=== PATIENT | male | born 1945 | race Caucasian/White ===

== ENCOUNTER → 2019-09-13 | Outpatient (REF) | payer MEDICARE ==
[2019-09-13 19:12] LABS: HEMATOCRIT 47.6 % (42.0-52.0); HEMOGLOBIN 15.5 g/dl (13.5-17.5); MEAN CORPUSCULAR HEMOGLOBIN 29.9 pg (27.0-33.0); MEAN CORPUSCULAR HGB CONC 32.6 g/dl (32.0-36.5); MEAN CORPUSCULAR VOLUME 91.9 fl (80.0-96.0); PLATELET COUNT, AUTOMATED 241 10^3/uL (150-450); RED BLOOD COUNT 5.18 10^6/uL (4.30-6.10); WHITE BLOOD COUNT 8.2 10^3/uL (4.0-10.0)
[2019-09-13 19:22] LABS: ALBUMIN 3.6 GM/DL (3.2-5.2); ALT/SGPT 35 U/L (12-78); BILIRUBIN,TOTAL 0.3 MG/DL (0.2-1.0); BLOOD UREA NITROGEN 10 MG/DL (7-18); CALCIUM LEVEL 9.9 MG/DL (8.8-10.2); CARBON DIOXIDE LEVEL 34 MEQ/L (21-32); CHLORIDE LEVEL 97 MEQ/L (98-107); CHOLESTEROL LEVEL 180 MG/DL (<200); CHOLESTEROL RISK RATIO 3.272 (<5); CREATININE FOR GFR 0.63 MG/DL (0.70-1.30); GLOMERULAR FILTRATION RATE > 60.0 (>42); GLUCOSE, FASTING 80 MG/DL (70-100); HDL CHOLESTEROL 55 MG/DL (>40); LDL CHOLESTEROL 101 MG/DL (<100); NON-HDL-C 125 MG/DL; POTASSIUM SERUM 3.2 MEQ/L (3.5-5.1); SODIUM LEVEL 136 MEQ/L (136-145); TOTAL PROTEIN 7.6 GM/DL (6.4-8.2); TRIGLYCERIDES LEVEL 121 MG/DL (<150)
== END ==
LOC: M SFHCADAM 15:00
PROVIDERS: ATTEND Physician Assistant
DX: I10 Essential (primary) hypertension (principal); K59.09 Other constipation; N40.0 Benign prostatic hyperplasia without lower urinary tract symptoms; E78.00 Pure hypercholesterolemia, unspecified
CPT/HCPCS: 80053; 80061; 85027; 93005; G0103; G0463

== ENCOUNTER → 2019-12-10 | Outpatient (REF) | payer MEDICARE ==
[2019-12-10 13:46] LABS: BLOOD UREA NITROGEN 11 MG/DL (7-18); CALCIUM LEVEL 9.1 MG/DL (8.8-10.2); CARBON DIOXIDE LEVEL 31 MEQ/L (21-32); CHLORIDE LEVEL 100 MEQ/L (98-107); CREATININE FOR GFR 0.72 MG/DL (0.70-1.30); GLOMERULAR FILTRATION RATE > 60.0 (>42); GLUCOSE, FASTING 92 MG/DL (70-100); MAGNESIUM LEVEL 2.3 MG/DL (1.8-2.4); POTASSIUM SERUM 3.7 MEQ/L (3.5-5.1); SODIUM LEVEL 134 MEQ/L (136-145)
== END ==
LOC: M SFHCADAM 10:12
PROVIDERS: ATTEND Physician Assistant
DX: E87.6 Hypokalemia (principal)

== ENCOUNTER → 2020-01-21 | Outpatient (REF) | payer MEDICARE ==
[2020-03-16 03:48] LABS: BLOOD UREA NITROGEN 13 MG/DL (7-18); CALCIUM LEVEL 8.8 MG/DL (8.8-10.2); CARBON DIOXIDE LEVEL 28 MEQ/L (21-32); CHLORIDE LEVEL 97 MEQ/L (98-107); CREATININE FOR GFR 0.74 MG/DL (0.70-1.30); GLOMERULAR FILTRATION RATE > 60.0 (>42); GLUCOSE, FASTING 97 MG/DL (70-100); POTASSIUM SERUM 4.4 MEQ/L (3.5-5.1); SODIUM LEVEL 130 MEQ/L (136-145)
== END ==
LOC: M SFHCADAM 09:49
PROVIDERS: ATTEND Physician Assistant
DX: I11.9 Hypertensive heart disease without heart failure (principal)

== ENCOUNTER → 2020-04-29 | Outpatient (CLI) | payer MEDICARE ==
--- NOTE | 2020-05-01 13:45 | ECHO ---
DATE OF PROCEDURE: 04/29/2020 Age: 74 Gender: Male Height: 152 cm Weight: 82 kg REFERRING PHYSICIAN: MIMA Dennis. INDICATION: Abnormal EKG. , MEASUREMENTS: IVS 1.0 cm LV 4.4 cm LVPW 1.0 cm LA 3.8 cm Aorta 3.1 cm IVC 1.4 cm Mitral E wave velocity 78, A wave 99 E prime septal 6.1, E prime lateral 11.2 FINDINGS: This study is of acceptable technical quality. The patient is in sinus rhythm. Normal LV size with preserved LV systolic function, estimated LVEF 60% to 65%. Normal RV size and systolic function. Both atria appear normal. The aortic valve is mildly sclerotic, but is tricuspid and has normal mobility. Mitral and tricuspid valves appear normal. Limited views of pulmonic valve also appear normal. No pericardial effusion is noted. Inferior vena cava is normal size and appropriately collapses with inspiration, indicative of normal central venous pressure. The aortic root is normal. The aortic arch and abdominal aorta were not visualized. Doppler interrogation reveals competent aortic valve. There are also competent mitral and pulmonic valves. Tricuspid valve exhibits trace insufficiency, but unfortunately the quality of the TR jet was not sufficient to adequately estimate the pulmonary artery pressure. CONCLUSIONS: 1. Study is of acceptable technical quality, underlying sinus rhythm. 2. Normal left ventricular (LV) size and systolic function, grade 1 diastolic dysfunction. 3. No significant valvular disease. 4. Normal central venous pressure, but unable to estimate pulmonary artery pressure. COMMENTS: Essentially normal echocardiogram for patients age. MTDD
== END ==
LOC: M CARPUL 09:20
PROVIDERS: ATTEND Physician Assistant
DX: R94.31 Abnormal electrocardiogram [ECG] [EKG] (principal)

== ENCOUNTER → 2020-10-13 | Outpatient (REF) | payer MEDICARE ==
[2020-10-13 16:48] LABS: HEMATOCRIT 40.5 % (42.0-52.0); HEMOGLOBIN 13.5 g/dl (13.5-17.5); MEAN CORPUSCULAR HEMOGLOBIN 30.8 pg (27.0-33.0); MEAN CORPUSCULAR HGB CONC 33.3 g/dl (32.0-36.5); MEAN CORPUSCULAR VOLUME 92.3 fl (80.0-96.0); PLATELET COUNT, AUTOMATED 238 10^3/uL (150-450); RED BLOOD COUNT 4.39 10^6/uL (4.30-6.10); WHITE BLOOD COUNT 7.7 10^3/uL (4.0-10.0)
[2020-10-13 17:26] LABS: ALBUMIN 3.2 GM/DL (3.2-5.2); ALT/SGPT 35 U/L (12-78); BILIRUBIN,TOTAL 0.4 MG/DL (0.2-1.0); BLOOD UREA NITROGEN 17 MG/DL (7-18); CARBON DIOXIDE LEVEL 29 MEQ/L (21-32); CHLORIDE LEVEL 93 MEQ/L (98-107); CHOLESTEROL LEVEL 144 MG/DL (<200); CHOLESTEROL RISK RATIO 2.716 (<5); CREATININE FOR GFR 0.62 MG/DL (0.70-1.30); FREE T4 1.02 NG/DL (0.76-1.46); GLOMERULAR FILTRATION RATE > 60.0 (>42); GLUCOSE, FASTING 90 MG/DL (70-100); HDL CHOLESTEROL 53 MG/DL (>40); LDL CHOLESTEROL 57 MG/DL (<100); NON-HDL-C 91 MG/DL; POTASSIUM SERUM 4.4 MEQ/L (3.5-5.1); SODIUM LEVEL 128 MEQ/L (136-145); TOTAL PROTEIN 6.9 GM/DL (6.4-8.2); TRIGLYCERIDES LEVEL 169 MG/DL (<150)
[2020-10-13 17:28] LABS: TOTAL 25(OH) VITAMIN D 30.1 NG/ML (30.0-100.0)
[2020-10-13 17:29] LABS: FOLATE > 24.0 NG/ML; VITAMIN B12 LEVEL 881 PG/ML
[2020-10-13 17:36] LABS: CREATININE, URINE 33.4 MG/DL; MALB URINE SIEMENS < 5.0 MG/L; MAU/CREAT RATIO 14.9 MCG/MG (0.0-30.0)
== END ==
LOC: M SFHCADAM 14:58
PROVIDERS: ATTEND Physician Assistant
DX: I10 Essential (primary) hypertension (principal); E78.00 Pure hypercholesterolemia, unspecified; N40.0 Benign prostatic hyperplasia without lower urinary tract symptoms; G62.9 Polyneuropathy, unspecified
CPT/HCPCS: 80053; 80061; 82043; 82306; 82607; 82746; 84439; 84443; 85027; G0103

== ENCOUNTER → 2020-10-26 | Outpatient (CLI) | payer MEDICARE ==
--- NOTE | 2020-10-26 09:29 | REP ---
INDICATION: PAIN IN LEFT HIP COMPARISON: None. TECHNIQUE: AP and frog-lateral views of the S left hip FINDINGS: Degenerative changes include increased sclerosis to the acetabular rim with joint space narrowing and marginal spurring. No further overt arthritic changes are appreciated. No evidence for acute or healed injury. IMPRESSION: Mild osteoarthritic degenerative changes. <Electronically signed by Abimael Mast > 10/26/20 0982
--- NOTE | 2020-10-26 09:34 | REP ---
INDICATION: PAIN IN LEFT KNEE COMPARISON: None. TECHNIQUE: AP, lateral, bilateral oblique and sunrise views. FINDINGS: Moderate tricompartmental osteoarthritic degenerative changes along with generalized age-related osteopenia. There is increased subtle cortical irregularities involving the femoral condyles along with minimal medial tibiofemoral joint space narrowing. [place] view demonstrates sclerotic changes along the patellar contour with marginal osteophyte formation and decreased patellofemoral joint space. No acute fracture or dislocation. No effusion. IMPRESSION: Osteopenia and moderate tricompartmental osteoarthritic degenerative changes primarily involving the patellofemoral joint. <Electronically signed by Abimael Mast > 10/26/20 0931
== END ==
LOC: M ADAMS 09:00
PROVIDERS: ATTEND Physician Assistant
DX: M17.12 Unilateral primary osteoarthritis, left knee (principal); M85.88 Other specified disorders of bone density and structure, other site; M16.12 Unilateral primary osteoarthritis, left hip; M25.559 Pain in unspecified hip; M25.562 Pain in left knee

== ENCOUNTER → 2021-01-08 | Outpatient (CLI) | payer MEDICARE ==
[2021-01-08 14:31] LABS: BLOOD UREA NITROGEN 22 MG/DL (7-18); CALCIUM LEVEL 8.6 MG/DL (8.8-10.2); CARBON DIOXIDE LEVEL 27 MEQ/L (21-32); CHLORIDE LEVEL 101 MEQ/L (98-107); GLOMERULAR FILTRATION RATE > 60.0 (>42); GLUCOSE, FASTING 101 MG/DL (70-100); POTASSIUM SERUM 4.4 MEQ/L (3.5-5.1); SODIUM LEVEL 134 MEQ/L (136-145)
== END ==
LOC: M PLALAB 11:58
PROVIDERS: ATTEND Physician Assistant
DX: M25.559 Pain in unspecified hip (principal)

== ENCOUNTER 2021-02-07 19:33 | Emergency (ER) | payer MEDICARE, OTHER ==
[~2021-02-07] VITALS: Ht 157.5 cm; Wt 82.3 kg
--- NOTE | 2021-02-07 20:42 | REPVR ---
PROCEDURE INFORMATION: Exam: XR Chest Exam date and time: 02/07/2021 8:26 PM Age: 75 years old Clinical indication: Pain; Other: Shoulder; Additional info: Trauma TECHNIQUE: Imaging protocol: XR of the chest. Views: 1 view. COMPARISON: No relevant prior studies available. FINDINGS: Lungs: Unremarkable. No consolidation. Pleural spaces: Unremarkable. No pleural effusion. No pneumothorax. Heart/Mediastinum: Unremarkable. No cardiomegaly. Bones/joints: Acute comminuted fracture the proximal humerus on the right. Osteoporosis. IMPRESSION: 1. Acute comminuted fracture the proximal humerus on the right. 2. No acute pulmonary parenchymal findings. Electronically signed by: Kelechi Gamboa On 02/07/2021 20:42:03 PM
--- NOTE | 2021-02-07 20:43 | REPVR ---
PROCEDURE INFORMATION: Exam: XR Right Shoulder Exam date and time: 02/07/2021 8:26 PM Age: 75 years old Clinical indication: Pain; Shoulder; Right; Additional info: Trauma TECHNIQUE: Imaging protocol: XR Right shoulder. Views: 2 or more views. COMPARISON: CR Chest, 1 view 02/07/2021 8:10 PM FINDINGS: Bones/joints: Acute fracture proximal humerus involving the greater tuberosity. Anterior dislocation of the humeral head relative to the glenoid fossa. Soft tissues: Normal. IMPRESSION: Acute fracture proximal humerus involving the greater tuberosity. Anterior dislocation of the humeral head relative to the glenoid fossa. Electronically signed by: Kelechi Gamboa On 02/07/2021 20:43:03 PM
--- NOTE | 2021-02-07 20:44 | REPVR ---
PROCEDURE INFORMATION: Exam: XR Right Humerus Exam date and time: 02/07/2021 8:26 PM Age: 75 years old Clinical indication: Pain; Shoulder; Right; Additional info: Trauma TECHNIQUE: Imaging protocol: XR Right humerus. Views: 2 or more views. COMPARISON: CR Shoulder, complete RIGHT 02/07/2021 8:12 PM FINDINGS: Bones/joints: Acute fracture of the greater tuberosity in the proximal humerus. Anterior dislocation of the humeral head. Remaining humerus unremarkable. Soft tissues: Normal. IMPRESSION: Acute fracture of the greater tuberosity in the proximal humerus. Anterior dislocation of the humeral head. Remaining humerus unremarkable. Electronically signed by: Kelechi Gamboa On 02/07/2021 20:43:55 PM
[2021-02-07] MEDS ORDERED: MORPHINE 2 MG/ML 1ML VIAL (J2270) IV ONE (21:05)
[2021-02-07] MEDS ORDERED: NS 1,000 ML IV SCH (22:10)
[2021-02-07] MEDS: propofoL 200 MG/20 ML VIAL IV.PROC PRN ×4 (22:57→23:05)
--- NOTE | 2021-02-08 00:02 | REPVR ---
PROCEDURE INFORMATION: Exam: XR Right Shoulder Exam date and time: 02/07/2021 11:42 PM Age: 75 years old Clinical indication: Pain; Shoulder; Right; Additional info: Reduction film TECHNIQUE: Imaging protocol: XR Right shoulder. Views: 2 or more views. COMPARISON: CR Shoulder, complete RIGHT 02/07/2021 8:12 PM FINDINGS: Bones/joints: There is an acute mildly displaced fracture of the greater tuberosity of the right humerus/Hill-Sachs fracture in improved alignment compared to the prior right shoulder x-rays on 02/07/2021 8:12 PM. The right bony glenoid is intact. The right glenohumeral alignment is anatomic and the previously noted right anterior shoulder dislocation has been reduced successfully since the prior right shoulder x-rays on 02/07/2021 8:12 PM. Soft tissues: There is a calcific density in the right rotator cuff tendon insertion, which is compatible with calcific tendinitis. IMPRESSION: 1. Acute mildly displaced fracture of the greater tuberosity of the right humerus/Hill-Sachs fracture in improved alignment compared to the prior right shoulder x-rays on 02/07/2021 8:12 PM. 2. The previously noted right anterior shoulder dislocation has been reduced successfully since the prior right shoulder x-rays on 02/07/2021 8:12 PM. 3. Right rotator cuff calcific tendinitis. Electronically signed by: Alvarez Quiles On 02/08/2021 00:01:46 AM
[2021-02-08] MEDS ORDERED: OXYCODONE/APAP 5MG/325MG(BULK FOR ED) 1 TABLET PO ONE (01:10)
[2021-02-08] MEDS ORDERED: HYDR-3713 PO (01:11)
[2021-02-08 01:43] VITALS: BP 152/83
== END 2021-02-08 01:45 | disposition home or self-care (01) ==
LOC: M ED 19:33
DX: S43.004A Unspecified dislocation of right shoulder joint, initial encounter (principal); S42.251A Displaced fracture of greater tuberosity of right humerus, initial encounter for closed fracture; W18.2XXA Fall in (into) shower or empty bathtub, initial encounter; Y92.012 Bathroom of single-family (private) house as the place of occurrence of the external cause; I10 Essential (primary) hypertension
CPT/HCPCS: 23650; 71045; 73030; 73060; 93041; 96361; 96374; 99152; 99153; 99285; J2270

== ENCOUNTER → 2021-02-22 | Outpatient (CLI) | payer MEDICARE, MEDICAID ==
[~2021-02-22] MED LIST: HYDR-3713 PO
--- NOTE | 2021-02-22 09:04 | REP ---
INDICATION: RT SHOULDER PAIN ? POSITION OF FX. COMPARISON: Radiographs 02/07/2021. TECHNIQUE: Axial CT right shoulder with sagittal and coronal reconstruction images. FINDINGS: There is a comminuted fracture of the proximal humerus. The major fracture fragment originates from the greater tuberosity and is displaced medially, located along the posterior aspect of the humeral head. Multiple subcentimeter fracture fragments are seen along the superior margin of the humeral head, and a few are seen in the more lateral soft tissues. The humeral head is somewhat high riding within the glenoid fossa raising the possibility of a rotator cuff tear. There are mild degenerative changes at the acromioclavicular joint. IMPRESSION: Comminuted fracture proximal humerus, the major fracture fragment originates from the greater tuberosity and is located along the posterior aspect of the humeral head. There are multiple subcentimeter fracture fragments along the superior margin of the humeral head. A few are also seen in the more lateral soft tissues. High riding humeral head suggests a possible rotator cuff tear. <Electronically signed by Avtar Palmer > 02/22/21 0900
== END ==
LOC: M RAD 08:03
PROVIDERS: ATTEND Orthopaedic Surgery Sports Medicine
DX: S42.251D Displaced fracture of greater tuberosity of right humerus, subsequent encounter for fracture with routine healing (principal); X58.XXXD Exposure to other specified factors, subsequent encounter; Y92.89 Other specified places as the place of occurrence of the external cause

== ENCOUNTER → 2021-02-24 | Outpatient (REF) | payer MEDICARE, MEDICAID ==
[~2021-02-24] MED LIST changes: +AMLO1TAB24 PO; +AZEL0.05; +CALC500T31 PO; +FINA5TAB2 PO; +GABA-1171 PO; +HYDR-3490 PO; +LEVOTAB10 PO; +METO1TAB7 PO; +MOME50SP2 INH; +OLME40TA PO; +POTA-136 PO; +SIMV20TA22 PO; +SPIR-10 PO; +TAMS1CAP17 PO
[2021-02-24 18:18] LABS: BASO % 0.2 % (0.0-1.0); EOS # 0.1 10^3/uL (0.0-0.5); EOS % 0.4 % (0.0-3.0); HEMATOCRIT 39.5 % (42.0-52.0); HEMOGLOBIN 13.3 g/dl (13.5-17.5); LYMPH # 1.7 10^3/uL (1.5-5.0); LYMPH % 12.4 % (24.0-44.0); MEAN CORPUSCULAR HEMOGLOBIN 30.7 pg (27.0-33.0); MEAN CORPUSCULAR HGB CONC 33.7 g/dl (32.0-36.5); MEAN CORPUSCULAR VOLUME 91.2 fl (80.0-96.0); MONO # 1.3 10^3/uL (0.0-0.8); MONO % 9.4 % (2.0-8.0); NEUTROPHILS # 10.2 10^3/uL (1.5-8.5); NEUTROPHILS % 76.8 % (36.0-66.0); PLATELET COUNT, AUTOMATED 346 10^3/uL (150-450); RED BLOOD COUNT 4.33 10^6/uL (4.30-6.10); WHITE BLOOD COUNT 13.3 10^3/uL (4.0-10.0)
[2021-02-24 18:38] LABS: ALT/SGPT 68 U/L (12-78); BILIRUBIN,TOTAL 0.6 MG/DL (0.2-1.0); BLOOD UREA NITROGEN 23 MG/DL (7-18); CALCIUM LEVEL 8.9 MG/DL (8.8-10.2); CARBON DIOXIDE LEVEL 28 MEQ/L (21-32); CHLORIDE LEVEL 92 MEQ/L (98-107); CREATININE FOR GFR 0.76 MG/DL (0.70-1.30); GLOMERULAR FILTRATION RATE > 60.0 (>42); GLUCOSE, FASTING 99 MG/DL (70-100); POTASSIUM SERUM 4.7 MEQ/L (3.5-5.1); SODIUM LEVEL 127 MEQ/L (136-145); TOTAL PROTEIN 6.2 GM/DL (6.4-8.2)
== END ==
LOC: M SFHCADAM 12:35
PROVIDERS: ATTEND Family Medicine
DX: Z01.818 Encounter for other preprocedural examination (principal)
CPT/HCPCS: 80053; 85025; G0463

== ENCOUNTER → 2021-02-27 | Outpatient (CLI) | payer MEDICARE | LOC: M LABSMTC 09:07 | PROVIDERS: ATTEND Anesthesiology | DX: Z01.812 Encounter for preprocedural laboratory examination (principal) ==

== ENCOUNTER 2021-03-04 06:00 | Day surgery (SDC) | payer MEDICARE ==
[~2021-03-04] VITALS: Ht 152.4 cm; Wt 82.6 kg
[~2021-03-04 06:00] MED LIST changes: +ceFAZolin SOD 2 GM in IV 1 EA IV ONE
[2021-03-04] MEDS ORDERED: fentaNYL 100 MCG/2 ML INJECTION (J3010) IV PRN ×2 (07:01→10:55)
[2021-03-04] MEDS ORDERED: MIDAZOLAM INJ 2MG/2ML VIAL (J2250 PER 1MG) IV PRN (07:01)
[2021-03-04] MEDS ORDERED: BUPIVACAINE LIPOSOME/PF 1.3% 20ML VIAL (13.3MG/ML)(EXPAREL)(C9290 PER1MG) As Ordered ONE (07:08)
[2021-03-04] MEDS ORDERED: BUPIVACAINE HCL 0.25% 30ML VIAL As Ordered ONE (07:08)
[2021-03-04] MEDS ORDERED: ONDANSETRON 4MG/2ML VIAL As Ordered ONE (07:20)
[2021-03-04] MEDS ORDERED: ACETAMINOPHEN 1000MG 100ML IV BTL (OFIRMEV) (J0131 PER 10MG) As Ordered ONE ×2 (07:20→10:07)
[2021-03-04] MEDS ORDERED: METOCLOPRAMIDE INJ 10MG/2ML VIAL (J2765 PER 1) As Ordered ONE (07:20)
[2021-03-04] MEDS ORDERED: propofoL 200 MG/20 ML VIAL As Ordered ONE (07:20)
[2021-03-04] MEDS ORDERED: ROCURONIUM BROMIDE 50 MG/5 ML VIAL As Ordered ONE (07:20)
[2021-03-04] MEDS ORDERED: LIDOCAINE 2% 100MG/5ML SDV (FOR ANES.) As Ordered ONE (07:20)
[2021-03-04] MEDS ORDERED: EPINEPHrine INJ 1 MG/ML 1ML AMP XX ONE (07:30)
[2021-03-04] MEDS ORDERED: dexameTHASONE 10MG/1ML VIAL PRES.FREE (J1100 PER 1MG) XX ONE (07:30)
[2021-03-04] MEDS ORDERED: LR 1,000 ML IV ONE (07:35)
[2021-03-04] MEDS ORDERED: ROPIvacaine 0.5% 30ML INJECTION (J2795 PER 1MG) XX ONE (07:40)
[2021-03-04] MEDS ORDERED: TRANEXAMIC ACID 100 MG/ML 10ML VIAL As Ordered ONE (08:52)
[2021-03-04] MEDS ORDERED: PHENYLephrine 500MCG 5ML (100MCG/ML) SYRINGE As Ordered ONE (10:06)
[2021-03-04] MEDS ORDERED: SUGAMMADEX SODIUM 500 MG/5 ML VIAL (BRIDION) As Ordered ONE (10:06)
[2021-03-04] MEDS ORDERED: dexameTHASONE 4 MG/ML 1ML VIAL (J1100 PER 1MG) As Ordered ONE (10:06)
[2021-03-04] MEDS ORDERED: ePHEDrine SULFATE 25 MG/5 ML(5MG/ML) SYRINGE As Ordered ONE (10:06)
--- NOTE | 2021-03-04 10:27 | REP ---
INDICATION: RIGHT SHOULDER FRACTURE. COMPARISON: Comparison right shoulder radiographs February 07, 2021. TECHNIQUE: Five views. 104.4 seconds of fluoroscopy time is reported. FINDINGS: A sequence of 5 last image hold fluoroscopically obtained spot radiographs of the right shoulder document open reduction internal fixation for greater tuberosity fracture. IMPRESSION: Procedural imaging. <Electronically signed by Alexis Hollis > 03/04/21 0851
--- NOTE | 2021-03-04 10:41 | ROOPDOC ---
[facility] Report Of Operation Report of Operation DATE OF PROCEDURE: 03/04/21 PREPROCEDURE DIAGNOSES: Right shoulder greater tuberosity fracture. POSTPROCEDURE DIAGNOSES: Same. PROCEDURE PERFORMED: Right greater tuberosity open reduction internal fixation. SURGEON: Dr. Nima Wolfe MD FRUIT INSPECTOR: ANESTHESIA: General anesthesia preoperative block Dr. Monte. ESTIMATED BLOOD LOSS: Approximately 100 mL. COMPLICATIONS: None. REMARKS: None. FINDINGS: Displaced greater tuberosity fracture SPECIMENS REMOVED: Small bone fragment PROCEDURE NOTE: This 75-year-old man had a fall. He sustained a widely displaced greater tuberosity fracture. We discussed the pros and cons risks and benefits with a case making machine operator before proceeding with surgery. He had no further questions today case making machine operator present on the computer, marked the right upper extremity. He wished to proceed.. DESCRIPTION OF PROCEDURE: Patient was brought to the operating room theater player. He was placed supine on the operating room table. Arm board was used radiolucent. 2 g IV Ancef as well as 1 g of IV tranexamic acid was used prior to the start of the procedure. General anesthesia induced. Patient sat up at a 45 degree angle. Right upper extremity prepped and draped in the usual sterile fashion with chlorhexidine-based prep solution allowing over 3 minutes drying time prior to draping. Bed turned at 90 degrees. Large fluoroscopy brought in from the head of the bed. Preoperative timeout performed to confirm the site the patient and the surgery. Began by marking out the proposed incision. I could palpate the greater tube rosity fragment far posterior laterally. I used the posterior one third anterior two thirds junction with a straight deltoid split laterally based incision. I carried this dissection down through skin and subcutaneous tissue. I marked out the axillary nerve 5 centimeters below the level of the lateral acromion. Split the deltoid fascia in line with skin incision. I ensured my incision was not any further distal to this palpated below to feel the axillary nerve in continuity. Identified the greater tuberosity fracture bed. I cleared this thoroughly irrigated it removed any interposed hematoma and periosteum off the fracture bed as well as the greater tuberosity fragment. The GT fragment was far posterior laterally. I used grasping devices as well as the #2 FiberWire sutures in the rotator cuff and joystick wires to deliver the fragment back to its anatomic location. I took intraoperative fluoroscopy. I used small K wires to preliminarily reduce the fracture fragment. I ensured not over reduce this as is typical for these types of fractures and had to reposition the fragment numerous times to avoid over reduction. There was a small spike of bone laterally however the reduction at the proximal aspect of the fracture fragment appeared normal. I did have to remove 1 small aspect 5mm piece of bone with a very small attachment of the rotator cuff to this in order to properly re duce the fragment as this was blocking reduction and comminuted. I achieved good reduction pased 4 K wires into the fragment took intraoperative radiographs to confirm the proper placement. I then used a 4.0 mm Synthes partially threaded cannulated screws, overdrilled the near cortex with the cannulated 2.7mm drill. I inserted 2, 38 mm long screws with washers and ensured that these did not penetrate the far cortex both by feeling when passing the guidewires as well as intraoperative AP and lateral fluoroscopy. I did the near far technique ensure no penetration. I used direct visualization as well as live fluoroscopy to ensure no movement at the fracture site and good compression. The sutures in the rotator cuff were then removed, no obvious cuff tear. Wound thoroughly irrigated final pictures taken and saved onto the system. Deltoid fascia closed with interrupted #1 Vicryl suture subcutaneous tissue with 2-0 Vicryl sutures and skin with Prineo and Dermabond dressing which was allowed to fully dry prior to removing the drapes. Patient's right upper extremity was then placed into a sling with the arm on the abdomen. Patient was woken up from general anesthetic transferred off the operating room table and taken to postanesthetic care unit in stable condition. All sponge needle instrument counts were correct no complications estimated blood loss 100 cc. Plan for patient gentle pendulum exercises sling for 2 weeks and wrist and elbow exercises 4 times a day May shower over top of the dressing postoperative day [address] it in place until follow-up. Prescription has been sent in electronically to the pharmacy listed in the EMR. Risk factors for harms from taking opioid medications discussed and assessed including but not limited to personal or family history of substance use disorder, anxiety or depression, , age 65 or older, COPD or other underlying respiratory conditions, and renal or hepatic insufficiency. Discussed with patient concerns and determined any harms they may experience or be currently experiencing such as nausea or constipation, feeling sedated or confused, breathing interruptions during sleep, or taking or craving more opioids than prescribed or difficulty controlling use (addiction). Discussed early warning signs of overdose including confusion, sedation, slurred speech, abnormal gait. Postoperative wound instructions were given. It was recommended to keep the wound clean and dry. It was reinforced with the patient that they should call us or be seen immediately for redness, drainage, or fever. NIMA WOLFE MD Mar 04, 2021 10:41
[2021-03-04] MEDS ORDERED: LR 1,000 ML IV SCH ×2 (10:55)
[2021-03-04] MEDS ORDERED: ACETAMINOPHEN TAB 650MG DOSE (2X325MG) PO PRN (10:55)
[2021-03-04] MEDS ORDERED: ONDANSETRON 4MG/2ML VIAL IV PRN ×2 (10:55)
[2021-03-04] MEDS ORDERED: PERCOCET 5MG/325MG TAB PO PRN (10:55)
[2021-03-04] MEDS ORDERED: MORPHINE 2 MG/ML 1ML VIAL (J2270) IV PRN (10:55)
[2021-03-04] MEDS ORDERED: oxyCODONE 5MG TAB PO PRN (10:55)
[2021-03-04 12:15] VITALS: BP 97/63
== END 2021-03-04 12:40 | disposition home or self-care (01) ==
LOC: M SDC 06:00
PROVIDERS: ATTEND Orthopaedic Surgery Sports Medicine
DX: S42.251A Displaced fracture of greater tuberosity of right humerus, initial encounter for closed fracture (principal); W01.0XXA Fall on same level from slipping, tripping and stumbling without subsequent striking against object, initial encounter; Y92.89 Other specified places as the place of occurrence of the external cause; K59.09 Other constipation; I10 Essential (primary) hypertension; N40.0 Benign prostatic hyperplasia without lower urinary tract symptoms; M17.12 Unilateral primary osteoarthritis, left knee; J30.9 Allergic rhinitis, unspecified; I87.2 Venous insufficiency (chronic) (peripheral); E78.5 Hyperlipidemia, unspecified; E87.1 Hypo-osmolality and hyponatremia; Z79.899 Other long term (current) drug therapy
CPT/HCPCS: 23630; 76000; C1713; C9290; J0131; J0171; J0690; J1100; J2250; J2370; J2405; J2765; J2795; J3010

== ENCOUNTER → 2021-03-18 | Outpatient (CLI) | payer MEDICARE ==
[~2021-03-18] MED LIST changes: -ceFAZolin SOD 2 GM in IV 1 EA IV ONE
--- NOTE | 2021-03-18 09:39 | REP ---
INDICATION: SURGICAL AFTERCARE. COMPARISON: 02/07/2021 TECHNIQUE: Five views FINDINGS: The previously described proximal right humeral fracture has been openly reduced and internally fixed with 2 cancellous screws. The alignment is near anatomical. The tips of the screws do not breach the glenohumeral joint. Multiple calcifications are seen in the subacromial space representing a change from the prior exam. IMPRESSION: As above. <Electronically signed by Juan Antonio Richmond > 03/18/21 1529
== END ==
LOC: M SOG 08:19
PROVIDERS: ATTEND Orthopaedic Surgery Sports Medicine
DX: Z48.89 Encounter for other specified surgical aftercare (principal)

== ENCOUNTER → 2021-04-15 | Outpatient (REF) | payer MEDICARE, MEDICAID ==
[2021-04-15 14:28] LABS: BLOOD UREA NITROGEN 15 MG/DL (7-18); CALCIUM LEVEL 9.4 MG/DL (8.8-10.2); CARBON DIOXIDE LEVEL 29 MEQ/L (21-32); CHLORIDE LEVEL 100 MEQ/L (98-107); CREATININE FOR GFR 0.66 MG/DL (0.70-1.30); GLOMERULAR FILTRATION RATE > 60.0 (>42); GLUCOSE, FASTING 103 MG/DL (70-100); POTASSIUM SERUM 4.8 MEQ/L (3.5-5.1); SODIUM LEVEL 134 MEQ/L (136-145)
== END ==
LOC: M SFHCADAM 09:35
PROVIDERS: ATTEND Physician Assistant
DX: E87.1 Hypo-osmolality and hyponatremia (principal)

== ENCOUNTER → 2021-04-27 | Outpatient (CLI) | payer MEDICARE, MEDICAID ==
--- NOTE | 2021-04-27 09:03 | REP ---
INDICATION: ORTHOPEDIC AFTERCARE. COMPARISON: 03/18/2021 TECHNIQUE: Neutral, internal rotation, external rotation, axillary and Y-views of the right shoulder FINDINGS: Patient is status post humeral head/tuberosity fracture fixation. Orthopedic screws and fracture fragment are unchanged in appearance and position. Suspected fracture components in the subacromial joint space and just lateral to the humeral neck are again identified and unchanged. IMPRESSION: No change from prior examination. <Electronically signed by Abimael Mast > 04/27/21 0878
== END ==
LOC: M SOG 08:11
PROVIDERS: ATTEND Orthopaedic Surgery Sports Medicine
DX: Z47.89 Encounter for other orthopedic aftercare (principal); Z98.890 Other specified postprocedural states

== ENCOUNTER → 2021-05-04 | Outpatient (RCR) | payer MEDICARE | LOC: M PT 04-05 08:35 | PROVIDERS: ATTEND Orthopaedic Surgery Sports Medicine | DX: Z48.89 Encounter for other specified surgical aftercare (principal) ==

== ENCOUNTER 2021-06-01 06:53 | Outpatient (RCR) | payer MEDICARE | END 2021-06-04 | LOC: M PT 06:53 | PROVIDERS: ATTEND Orthopaedic Surgery Sports Medicine | DX: S42.251D Displaced fracture of greater tuberosity of right humerus, subsequent encounter for fracture with routine healing (principal) ==

== ENCOUNTER 2021-06-17 07:00 | Outpatient (RCR) | payer MEDICARE | END 2021-07-05 | LOC: M PT 07:00 | PROVIDERS: ATTEND Orthopaedic Surgery Sports Medicine | DX: Z48.89 Encounter for other specified surgical aftercare (principal); S42.251D Displaced fracture of greater tuberosity of right humerus, subsequent encounter for fracture with routine healing ==

== ENCOUNTER → 2021-06-24 | Outpatient (CLI) | payer MEDICARE | LOC: M SOG 08:25 | PROVIDERS: ATTEND Orthopaedic Surgery Sports Medicine | DX: S42.251D Displaced fracture of greater tuberosity of right humerus, subsequent encounter for fracture with routine healing (principal); X58.XXXD Exposure to other specified factors, subsequent encounter; Y92.89 Other specified places as the place of occurrence of the external cause ==

== ENCOUNTER → 2021-09-24 | Outpatient (REF) | payer MEDICARE, MEDICAID | LOC: M SFHCADAM 15:50 | PROVIDERS: ATTEND Physician Assistant | DX: Z53.9 Procedure and treatment not carried out, unspecified reason (principal) ==

== ENCOUNTER → 2021-09-28 | Outpatient (CLI) | payer MEDICARE, MEDICAID | LOC: M SOG 15:40 | PROVIDERS: ATTEND Orthopaedic Surgery Hand Surgery | DX: S42.251K Displaced fracture of greater tuberosity of right humerus, subsequent encounter for fracture with nonunion (principal) ==

== ENCOUNTER 2021-10-05 10:53 | Emergency (ER) | payer MEDICARE, MEDICAID ==
[~2021-10-05] VITALS: Ht 157.5 cm; Wt 83.4 kg
[~2021-10-05 10:53] MED LIST changes: -ONDA4TAB6 PO
[2021-10-05 12:52] LABS: BASO # 0.1 10^3/uL (0.0-0.2); BASO % 0.6 % (0.0-1.0); EOS # 0.4 10^3/uL (0.0-0.5); EOS % 4.1 % (0.0-3.0); HEMATOCRIT 38.5 % (42.0-52.0); HEMOGLOBIN 13.3 g/dl (13.5-17.5); LYMPH # 3.4 10^3/uL (1.5-5.0); LYMPH % 37.3 % (24.0-44.0); MEAN CORPUSCULAR HEMOGLOBIN 31.6 pg (27.0-33.0); MEAN CORPUSCULAR HGB CONC 34.5 g/dl (32.0-36.5); MEAN CORPUSCULAR VOLUME 91.4 fl (80.0-96.0); MONO # 1.2 10^3/uL (0.0-0.8); MONO % 12.9 % (2.0-8.0); NEUTROPHILS % 44.8 % (36.0-66.0); PLATELET COUNT, AUTOMATED 345 10^3/uL (150-450); RED BLOOD COUNT 4.21 10^6/uL (4.30-6.10)
[2021-10-05 13:12] LABS: ALBUMIN 3.3 GM/DL (3.2-5.2); ALT/SGPT 18 U/L (12-78); BILIRUBIN,DIRECT 0.2 MG/DL (0.0-0.2); BILIRUBIN,TOTAL 0.7 MG/DL (0.2-1.0); BLOOD UREA NITROGEN 9 MG/DL (7-18); CALCIUM LEVEL 9.3 MG/DL (8.8-10.2); CARBON DIOXIDE LEVEL 28 MEQ/L (21-32); CHLORIDE LEVEL 88 MEQ/L (98-107); CREATININE FOR GFR 0.55 MG/DL (0.70-1.30); GLOMERULAR FILTRATION RATE > 60.0 (>42); GLUCOSE, FASTING 105 MG/DL (70-100); LIPASE 144 U/L (73-393); POTASSIUM SERUM 3.5 MEQ/L (3.5-5.1); SODIUM LEVEL 127 MEQ/L (136-145); TOTAL PROTEIN 6.9 GM/DL (6.4-8.2)
[2021-10-05] MEDS ORDERED: ONDANSETRON 4MG/2ML VIAL IV ONE (13:30)
[2021-10-05] MEDS ORDERED: NS 1,000 ML IV ONE (13:30)
[2021-10-05] MEDS ORDERED: ISOVUE-370 76% 100ML VIAL As Ordered ONE (13:35)
[2021-10-05] MEDS ORDERED: ONDA4TAB6 PO (15:44)
[2021-10-05 16:00] VITALS: BP 112/75
== END 2021-10-05 16:02 | disposition home or self-care (01) ==
LOC: M ED 10:53
DX: R11.2 Nausea with vomiting, unspecified (principal); I10 Essential (primary) hypertension; N40.0 Benign prostatic hyperplasia without lower urinary tract symptoms; E27.9 Disorder of adrenal gland, unspecified; E78.5 Hyperlipidemia, unspecified; Z79.899 Other long term (current) drug therapy; Z79.51 Long term (current) use of inhaled steroids
CPT/HCPCS: 36415; 74177; 80053; 80061; 81001; 83036; 83690; 84439; 84443; 85025; 85027; 87088; 87186; 99284; Q9967

== ENCOUNTER → 2021-10-05 | Outpatient (CLI) | payer MEDICARE, MEDICAID ==
[~2021-10-05] MED LIST changes: +ONDA4TAB6 PO
[2021-10-05 11:01] LABS: HEMATOCRIT 37.3 % (42.0-52.0); HEMOGLOBIN 12.6 g/dl (13.5-17.5); MEAN CORPUSCULAR HEMOGLOBIN 30.8 pg (27.0-33.0); MEAN CORPUSCULAR HGB CONC 33.8 g/dl (32.0-36.5); MEAN CORPUSCULAR VOLUME 91.2 fl (80.0-96.0); PLATELET COUNT, AUTOMATED 343 10^3/uL (150-450); RED BLOOD COUNT 4.09 10^6/uL (4.30-6.10); WHITE BLOOD COUNT 8.6 10^3/uL (4.0-10.0)
[2021-10-05 11:27] LABS: HEMOGLOBIN A1c 5.7 %
[2021-10-05 11:42] LABS: ALBUMIN 3.1 GM/DL (3.2-5.2); ALT/SGPT 17 U/L (12-78); BILIRUBIN,TOTAL 0.7 MG/DL (0.2-1.0); BLOOD UREA NITROGEN 9 MG/DL (7-18); CALCIUM LEVEL 8.9 MG/DL (8.8-10.2); CARBON DIOXIDE LEVEL 29 MEQ/L (21-32); CHLORIDE LEVEL 88 MEQ/L (98-107); CHOLESTEROL LEVEL 131 MG/DL (<200); CHOLESTEROL RISK RATIO 3.046 (<5); CREATININE FOR GFR 0.63 MG/DL (0.70-1.30); FREE T4 1.49 NG/DL (0.76-1.46); GLOMERULAR FILTRATION RATE > 60.0 (>42); GLUCOSE, FASTING 97 MG/DL (70-100); HDL CHOLESTEROL 43 MG/DL (>40); LDL CHOLESTEROL 67 MG/DL (<100); NON-HDL-C 88 MG/DL; POTASSIUM SERUM 3.6 MEQ/L (3.5-5.1); SODIUM LEVEL 123 MEQ/L (136-145); THYROID STIMULATING HORMONE 0.985 uIU/ML (0.358-3.740); TOTAL PROTEIN 6.3 GM/DL (6.4-8.2); TRIGLYCERIDES LEVEL 106 MG/DL (<150)
== END ==
LOC: M LAB 09:31
PROVIDERS: ATTEND Physician Assistant
DX: I10 Essential (primary) hypertension (principal); E55.9 Vitamin D deficiency, unspecified; N40.1 Benign prostatic hyperplasia with lower urinary tract symptoms; Z13.1 Encounter for screening for diabetes mellitus; E66.9 Obesity, unspecified; E78.00 Pure hypercholesterolemia, unspecified; K59.9 Functional intestinal disorder, unspecified

== ENCOUNTER → 2021-10-22 | Outpatient (REF) | payer MEDICARE, MEDICAID ==
[~2021-10-22] MED LIST changes: +ONDA4TAB6 PO
[2021-10-22 17:16] LABS: BLOOD UREA NITROGEN 27 MG/DL (7-18); CALCIUM LEVEL 9.1 MG/DL (8.8-10.2); CARBON DIOXIDE LEVEL 21 MEQ/L (21-32); CHLORIDE LEVEL 94 MEQ/L (98-107); CREATININE FOR GFR 0.78 MG/DL (0.70-1.30); GLOMERULAR FILTRATION RATE > 60.0 (>42); GLUCOSE, FASTING 95 MG/DL (70-100); POTASSIUM SERUM 4.7 MEQ/L (3.5-5.1); SODIUM LEVEL 123 MEQ/L (136-145)
== END ==
LOC: M SFHCADAM 10:44
PROVIDERS: ATTEND Physician Assistant
DX: R11.2 Nausea with vomiting, unspecified (principal); R63.4 Abnormal weight loss; E87.1 Hypo-osmolality and hyponatremia; N30.00 Acute cystitis without hematuria

== ENCOUNTER → 2021-11-09 | Outpatient (CLI) | payer MEDICARE, MEDICAID | LOC: M SOG 08:23 | PROVIDERS: ATTEND Physician Assistant | DX: S42.251D Displaced fracture of greater tuberosity of right humerus, subsequent encounter for fracture with routine healing (principal); X58.XXXD Exposure to other specified factors, subsequent encounter; Y92.89 Other specified places as the place of occurrence of the external cause ==

== ENCOUNTER → 2021-11-26 | Outpatient (CLI) | payer MEDICARE, MEDICAID | LOC: M PLARAD 09:33 | PROVIDERS: ATTEND Physician Assistant | DX: E27.8 Other specified disorders of adrenal gland (principal); Q61.02 Congenital multiple renal cysts ==

== ENCOUNTER → 2021-12-09 | Outpatient (REF) | payer MEDICARE, MEDICAID ==
[2021-12-09 13:36] LABS: HEMATOCRIT 32.7 % (42.0-52.0); HEMOGLOBIN 10.6 g/dl (13.5-17.5); MEAN CORPUSCULAR HGB CONC 32.4 g/dl (32.0-36.5); MEAN CORPUSCULAR VOLUME 92.6 fl (80.0-96.0); PLATELET COUNT, AUTOMATED 360 10^3/uL (150-450); RED BLOOD COUNT 3.53 10^6/uL (4.30-6.10); WHITE BLOOD COUNT 11.8 10^3/uL (4.0-10.0)
[2021-12-09 14:09] LABS: ALBUMIN 2.8 GM/DL (3.2-5.2); ALT/SGPT 38 U/L (12-78); BILIRUBIN,TOTAL 0.4 MG/DL (0.2-1.0); BLOOD UREA NITROGEN 27 MG/DL (7-18); CALCIUM LEVEL 8.5 MG/DL (8.8-10.2); CARBON DIOXIDE LEVEL 26 MEQ/L (21-32); CHLORIDE LEVEL 92 MEQ/L (98-107); CREATININE FOR GFR 0.69 MG/DL (0.70-1.30); GLOMERULAR FILTRATION RATE > 60.0 (>42); GLUCOSE, FASTING 107 MG/DL (70-100); POTASSIUM SERUM 4.3 MEQ/L (3.5-5.1); SODIUM LEVEL 123 MEQ/L (136-145); TOTAL PROTEIN 5.8 GM/DL (6.4-8.2)
== END ==
LOC: M SFHCADAM 10:32
PROVIDERS: ATTEND Physician Assistant
DX: R19.7 Diarrhea, unspecified (principal); E87.1 Hypo-osmolality and hyponatremia

== ENCOUNTER → 2021-12-10 | Outpatient (REF) | payer MEDICARE, MEDICAID | LOC: M SFHCADAM 16:08 | PROVIDERS: ATTEND Physician Assistant | DX: R19.7 Diarrhea, unspecified (principal) ==

== ENCOUNTER → 2022-01-28 | Outpatient (REF) | payer MEDICARE, MEDICAID ==
[2022-01-28 13:39] LABS: BLOOD UREA NITROGEN 10 MG/DL (7-18); CALCIUM LEVEL 9.3 MG/DL (8.8-10.2); CARBON DIOXIDE LEVEL 27 MEQ/L (21-32); CHLORIDE LEVEL 88 MEQ/L (98-107); CREATININE FOR GFR 0.58 MG/DL (0.70-1.30); FERRITIN 18 NG/ML (26-388); FREE T4 1.16 NG/DL (0.76-1.46); GLOMERULAR FILTRATION RATE > 60.0 (>42); GLUCOSE, FASTING 116 MG/DL (70-100); IRON (FE) 24 UG/DL (65-175); PERCENT SATURATION 5.9 % (19.7-50.0); POTASSIUM SERUM 4.2 MEQ/L (3.5-5.1); SODIUM LEVEL 121 MEQ/L (136-145); TOTAL IRON BINDING CAPACITY 405 UG/DL (250-450)
== END ==
LOC: M SFHCADAM 11:01
PROVIDERS: ATTEND Physician Assistant
DX: E87.1 Hypo-osmolality and hyponatremia (principal); D64.9 Anemia, unspecified

== ENCOUNTER → 2022-02-11 | Outpatient (REF) | payer MEDICARE, MEDICAID ==
[2022-02-11 12:39] LABS: OSMOLALITY URINE 639 MOSM/KG (50-1400)
[2022-02-11 12:48] LABS: APPEARANCE, URINE MANUAL CLOUDY (CLEAR); COLOR, URINE MANUAL YELLOW (YELLOW)
[2022-02-11 12:51] LABS: BILIRUBIN, URINE MANUAL NEGATIVE (NEGATIVE); BLOOD URINE MANUAL POSITIVE (NEGATIVE); GLUCOSE, URINE (UA) MANUAL 4+(1000 MG/DL) mg/dL (NEGATIVE); KETONE, URINE MANUAL 1+ mg/dL (NEGATIVE); LEUKOCYTE ESTERASE, URINE MAN POSITIVE (NEGATIVE); NITRITE, URINE MANUAL POSITIVE (NEGATIVE); PROTEIN, URINE MANUAL 1+ mg/dL (NEGATIVE); UROBILINOGEN, URINE MANUAL NORMAL (NORMAL)
[2022-02-11 12:54] LABS: HEMATOCRIT 32.2 % (42.0-52.0); HEMOGLOBIN 10.2 g/dl (13.5-17.5); MEAN CORPUSCULAR HGB CONC 31.7 g/dl (32.0-36.5); MEAN CORPUSCULAR VOLUME 85.2 fl (80.0-96.0); PLATELET COUNT, AUTOMATED 571 10^3/uL (150-450); RED BLOOD COUNT 3.78 10^6/uL (4.30-6.10)
[2022-02-11 13:18] LABS: SODIUM,RANDOM URINE 33 MEQ/L
[2022-02-11 13:19] LABS: WBC, URINE 30-40 /hpf (0-3)
[2022-02-11 13:21] LABS: BACTERIA, URINE LARGE AMOUNT; HYALINE CAST, URINE NONE SEEN /lpf (0-1); SQUAMOUS EPITHELIAL CELL URINE SMALL AMOUNT /hpf (SMALL AMT); TRIPLE PHOSPHATE CRYSTAL,URINE SMALL AMOUNT /hpf
[2022-02-11 13:46] LABS: OSMOLALITY SERUM 267 MOSM/KG (280-301)
[2022-02-11 14:04] LABS: ALBUMIN 3.5 GM/DL (3.2-5.2); ALT/SGPT 18 U/L (12-78); BILIRUBIN,TOTAL 0.3 MG/DL (0.2-1.0); BLOOD UREA NITROGEN 17 MG/DL (7-18); CALCIUM LEVEL 9.6 MG/DL (8.8-10.2); CARBON DIOXIDE LEVEL 26 MEQ/L (21-32); CHLORIDE LEVEL 92 MEQ/L (98-107); CREATININE FOR GFR 0.74 MG/DL (0.70-1.30); GLOMERULAR FILTRATION RATE > 60.0 (>42); GLUCOSE, FASTING 112 MG/DL (70-100); NT-PRO BNP 38 PG/ML (<450); POTASSIUM SERUM 4.4 MEQ/L (3.5-5.1); SODIUM LEVEL 124 MEQ/L (136-145); TOTAL PROTEIN 7.3 GM/DL (6.4-8.2)
== END ==
LOC: M SFHCADAM 08:13
PROVIDERS: ATTEND Physician Assistant
DX: E87.1 Hypo-osmolality and hyponatremia (principal); D50.9 Iron deficiency anemia, unspecified

== ENCOUNTER → 2022-03-30 | Outpatient (REF) | payer MEDICARE, MEDICAID ==
[2022-03-30 13:18] LABS: BASO # 0.1 10^3/uL (0.0-0.2); BASO % 0.5 % (0.0-1.0); EOS # 0.3 10^3/uL (0.0-0.5); EOS % 3.4 % (0.0-3.0); HEMATOCRIT 29.1 % (42.0-52.0); HEMOGLOBIN 8.9 g/dl (13.5-17.5); LYMPH # 2.7 10^3/uL (1.5-5.0); LYMPH % 29.9 % (24.0-44.0); MEAN CORPUSCULAR HEMOGLOBIN 23.5 pg (27.0-33.0); MEAN CORPUSCULAR HGB CONC 30.6 g/dl (32.0-36.5); MONO # 1.3 10^3/uL (0.0-0.8); MONO % 14.3 % (2.0-8.0); NEUTROPHILS # 4.7 10^3/uL (1.5-8.5); NEUTROPHILS % 51.7 % (36.0-66.0); PLATELET COUNT, AUTOMATED 438 10^3/uL (150-450); RED BLOOD COUNT 3.78 10^6/uL (4.30-6.10); WHITE BLOOD COUNT 9.2 10^3/uL (4.0-10.0)
[2022-03-30 16:22] LABS: ALT/SGPT 18 U/L (12-78); BILIRUBIN,TOTAL 0.3 MG/DL (0.2-1.0); BLOOD UREA NITROGEN 7 MG/DL (7-18); CALCIUM LEVEL 8.9 MG/DL (8.8-10.2); CARBON DIOXIDE LEVEL 25 MEQ/L (21-32); CHLORIDE LEVEL 91 MEQ/L (98-107); CREATININE FOR GFR 0.58 MG/DL (0.70-1.30); FERRITIN 10 NG/ML (26-388); GLOMERULAR FILTRATION RATE > 60.0 (>42); GLUCOSE, FASTING 91 MG/DL (70-100); IRON (FE) 23 UG/DL (65-175); PERCENT SATURATION 6.1 % (19.7-50.0); POTASSIUM SERUM 4.4 MEQ/L (3.5-5.1); SODIUM LEVEL 123 MEQ/L (136-145); TOTAL IRON BINDING CAPACITY 376 UG/DL (250-450); TOTAL PROTEIN 6.3 GM/DL (6.4-8.2)
[2022-03-30 18:36] LABS: FOLATE 17.9 NG/ML; TOTAL 25(OH) VITAMIN D 52.2 NG/ML (30.0-100.0); VITAMIN B12 LEVEL 904 PG/ML
== END ==
LOC: M SFHCADAM 07:59
PROVIDERS: ATTEND Physician Assistant
DX: E87.1 Hypo-osmolality and hyponatremia (principal); D50.9 Iron deficiency anemia, unspecified; I10 Essential (primary) hypertension; E55.9 Vitamin D deficiency, unspecified; Z79.899 Other long term (current) drug therapy